=== PATIENT | male | born 1985 | race Caucasian/White ===

== ENCOUNTER 2017-08-14 16:04 | Emergency (ER) | payer MEDICAID | END 2017-08-14 18:48 | disposition home or self-care (01) | LOC: FTE 16:04 | DX: Z48.01 Encounter for change or removal of surgical wound dressing (principal); F17.210 Nicotine dependence, cigarettes, uncomplicated | CPT/HCPCS: 99281; Z7502 ==

== ENCOUNTER 2017-08-26 12:20 | Emergency (ER) | payer MEDICAID | END 2017-08-26 13:22 | disposition home or self-care (01) | LOC: E/R 12:20 | DX: Z48.02 Encounter for removal of sutures (principal); F17.210 Nicotine dependence, cigarettes, uncomplicated | CPT/HCPCS: 99281; Z7502 ==